=== PATIENT | female | born 1955 | race Caucasian/White ===

== ENCOUNTER 2019-10-23 12:53 | Inpatient (IN) ==
[2019-10-23 14:02] LABS: Basophils # 0.1 K/mcL (0.0-0.2); Basophils % 0.4 %; Eosinophils # 0.4 K/mcL (0.0-0.6); Eosinophils % 2.2 %; Hematocrit 32.4 % (35.3-44.9); Hemoglobin 10.5 g/dL (11.5-15.4); Immature Granulocytes % 0.4 % (0-4); Lymphocytes # 0.5 K/mcL (0.6-4.6); Mean Corpuscular HGB Conc 32.4 g/dL (31.6-35.5); Mean Corpuscular Hemoglobin 29.7 pg (28.0-33.3); Mean Corpuscular Volume 91.8 fL (83.0-100.0); Mean Platelet Volume 8.9 fL (9.4-12.4); Monocytes # 0.9 K/mcL (0.0-1.3); Monocytes % 5.5 %; Neutrophils # 14.7 K/mcL (1.6-8.9); Platelet Count 374 K/mcL (140-400); Red Blood Count 3.53 M/mcL (3.82-4.97); Red Cell Distribution Width 14.9 % (11.5-14.5); Segmented Neutrophils % 88.5 %; White Blood Count 16.6 K/mcL (4.3-11.1)
[2019-10-23 14:03] LABS: Bilirubin,Urine Small (Negative); Blood,Urine Negative (Negative); Clarity,Urine Clear (Clear); Color,Urine Yellow (Yellow); Glucose,Urine (UA) Normal (Normal); Ketones,Urine Trace mg/dL (Negative); Leukocyte Esterase,Urine Negative (Negative); Nitrite,Urine Negative (Negative); PH,Urine 5.5 pH Units (5.0-8.0); Protein,Urine Negative (Neg-Trace); Specific Gravity,Urine 1.025 (1.010-1.025); Urobilinogen,Urine Normal (Normal)
[2019-10-23 14:09] LABS: INR 1.1; Prothrombin Time 12.8 Seconds (9.4-12.1)
[2019-10-23 14:13] LABS: Activated Partial Thrombo Time 17.7 Seconds (26.0-36.0)
[2019-10-23 14:44] LABS: Alanine Aminotransferase 12 Units/L (7-52); Albumin/Globulin Ratio 0.7 (1.1-2.2); Alkaline Phosphatase 113 Units/L (34-104); Aspartate Amino Transferase 20 Units/L (13-39); BUN/Creatinine Ratio 27 (6-26); Bilirubin,Indirect 0.3 mg/dL (0.0-1.0); Bilirubin,Total 0.3 mg/dL (0.3-1.0); Blood Urea Nitrogen 16 mg/dL (8-23); Calcium 9.6 mg/dL (8.6-10.3); Carbon Dioxide 26 mEq/L (23-29); Chloride 98 mEq/L (98-107); Ethanol < 10 mg/dL (Less than 10); Globulin 4.1 g/dL (2.4-3.5); Glucose 133 mg/dL (70-105); Osmolality,Calculated 281 (280-300); Potassium 4.1 mEq/L (3.5-5.1); Sodium 134 mEq/L (136-145); Total Protein 7.1 g/dL (6.4-8.9); Troponin I < 0.03 ng/mL (< 0.04); eGFR For African Americans > 60 (> 60); eGFR For Non-African Americans > 60 (> 60)
[2019-10-23 15:25] LABS: Amphetamine Screen,Urine Negative ng/mL (Cutoff=1000); Barbiturate Screen,Urine Negative ng/mL (Cutoff=200); Benzodiazepines Screen,Urine Negative ng/mL (Cutoff=200); Cannabinoid Screen,Urine Negative ng/mL (Cutoff = 50); Cocaine Screen,Urine Negative ng/mL (Cutoff= 300); Opiate Screen,Urine Positive ng/mL (Cutoff=300); Phencyclidine Screen,Urine Negative ng/mL (Cutoff=25)
[2019-10-23 16:14] LABS: ABG Base Excess 3 mEq/L (-2 to 3); ABG HCO3 27 mEq/L (21-27); ABG Oxygen Saturation 98 % (95-98); ABG PCO2 41 mmHg (35-45); ABG PH 7.44 pH Units (7.32-7.45); ABG PO2 94 mmHg (85-104); ABG TCO2 29 mEq/L (20-26)
[2019-10-23] MEDS ORDERED: Ondansetron 4 MG/2 ML VIAL IVP PRN (16:33)
[2019-10-23] MEDS ORDERED: Naloxone 0.4 MG/ML INJ IVP PRN (16:33)
[2019-10-23] MEDS ORDERED: Ringers Solution, Lactated 1,000 ML IVC SCH (16:45)
[2019-10-23] MEDS ORDERED: Hyoscyamine SL 0.125 MG TAB.SUBL SL PRN (16:45)
[2019-10-23] MEDS ORDERED: *HR* Heparin 5,000 UNIT/ML VIAL IVP ONE (17:32)
[2019-10-23] MEDS ORDERED: *HR* Heparin 5,000 UNIT/ML VIAL IVP PRN (17:32)
[2019-10-23] MEDS ORDERED: Heparin 25,000 UNIT/250 ML D5W 25,000 UNIT/250 ML IV.SOLN IVC SCH (17:45)
[2019-10-23] MEDS ORDERED: levoFLOXacin 500 MG/100 ML 500 MG/100 ML BAG IVPB SCH (18:00)
[2019-10-23] MEDS ORDERED: MetroNIDAZOLE 500 MG/100 ML 500 MG/100 ML BAG IVPB SCH (18:00)
[2019-10-23 18:16] LABS: Basophils # 0.1 K/mcL (0.0-0.2); Basophils % 0.4 %; Eosinophils # 0.2 K/mcL (0.0-0.6); Hematocrit 32.2 % (35.3-44.9); Hemoglobin 10.5 g/dL (11.5-15.4); Immature Granulocytes % 0.6 % (0-4); Lymphocytes # 0.6 K/mcL (0.6-4.6); Lymphocytes % 2.6 %; Mean Corpuscular HGB Conc 32.6 g/dL (31.6-35.5); Mean Corpuscular Hemoglobin 29.4 pg (28.0-33.3); Mean Corpuscular Volume 90.2 fL (83.0-100.0); Monocytes % 4.8 %; Neutrophils # 19.7 K/mcL (1.6-8.9); Platelet Count 354 K/mcL (140-400); Red Blood Count 3.57 M/mcL (3.82-4.97); Red Cell Distribution Width 14.7 % (11.5-14.5); Segmented Neutrophils % 90.6 %; White Blood Count 21.7 K/mcL (4.3-11.1)
[2019-10-23 18:21] LABS: INR 1.2; Prothrombin Time 13.6 Seconds (9.4-12.1)
[2019-10-23 18:25] LABS: Activated Partial Thrombo Time 29.8 Seconds (26.0-36.0)
[2019-10-24] MEDS: Sennosides/Docusate Sodium TABLET PO SCH ×3 (00:30→21:24)
[2019-10-24] MEDS: 0.9 % Sodium Chloride 1,000 ML IVC SCH ×2 (00:31→09:28)
[2019-10-24] MEDS: levoFLOXacin 500 MG/100 ML 500 MG/100 ML BAG IVPB SCH ×2 (00:31→23:24)
[2019-10-24] MEDS: *HR* LORazepam 0.5 MG TABLET PO PRN ×2 (00:31→21:25)
[2019-10-24 00:57] LABS: Basophils # 0.1 K/mcL (0.0-0.2); Basophils % 0.4 %; Eosinophils # 0.5 K/mcL (0.0-0.6); Eosinophils % 3.1 %; Hemoglobin 9.6 g/dL (11.5-15.4); Immature Granulocytes % 0.4 % (0-4); Lymphocytes # 0.6 K/mcL (0.6-4.6); Lymphocytes % 3.7 %; Mean Corpuscular Hemoglobin 28.9 pg (28.0-33.3); Mean Corpuscular Volume 90.4 fL (83.0-100.0); Monocytes # 0.7 K/mcL (0.0-1.3); Monocytes % 4.5 %; Neutrophils # 13.8 K/mcL (1.6-8.9); Platelet Count 337 K/mcL (140-400); Red Blood Count 3.32 M/mcL (3.82-4.97); Red Cell Distribution Width 14.8 % (11.5-14.5); Segmented Neutrophils % 87.9 %; White Blood Count 15.8 K/mcL (4.3-11.1)
[2019-10-24 01:17] LABS: BUN/Creatinine Ratio 33 (6-26); Blood Urea Nitrogen 16 mg/dL (8-23); Calcium 8.8 mg/dL (8.6-10.3); Carbon Dioxide 28 mEq/L (23-29); Chloride 99 mEq/L (98-107); Glucose 200 mg/dL (70-105); Magnesium 2.2 mg/dL (1.6-2.6); Osmolality,Calculated 283 (280-300); Sodium 133 mEq/L (136-145); eGFR For African Americans > 60 (> 60); eGFR For Non-African Americans > 60 (> 60)
[2019-10-24] MEDS: *HR* Heparin 5,000 UNIT/ML VIAL IVP PRN ×4 (01:38→23:30)
[2019-10-24] MEDS: MetroNIDAZOLE 500 MG/100 ML 500 MG/100 ML BAG IVPB SCH ×3 (01:39→16:40)
[2019-10-24] MEDS ORDERED: 0.9 % Sodium Chloride 1,000 ML IV ONE (08:07)
[2019-10-24] MEDS: Cyanocobalamin (B-12) 1,000 MCG TABLET PO SCH (09:26)
[2019-10-24] MEDS: (Vilazodone Hcl [Viibryd] 20 MG) PO SCH (09:29)
[2019-10-24] MEDS ORDERED: Gadolinium Contrast Agent (WT Based) IV PRN (15:20)
[2019-10-24] MEDS ORDERED: *HR* Heparin 5,000 UNIT/ML VIAL IVP PRN (15:24)
[2019-10-24] MEDS ORDERED: *HR* Heparin 5,000 UNIT/ML VIAL IVP ONE (15:24)
[2019-10-24] MEDS ORDERED: Heparin 25,000 UNIT/250 ML D5W 25,000 UNIT/250 ML IV.SOLN IVC SCH (15:30)
[2019-10-24 15:41] LABS: Heparin anti-factor XA UFH 0.22 IU/mL (0.30-0.70)
[2019-10-24 15:55] LABS: INR 1.3; Prothrombin Time 14.5 Seconds (9.4-12.1)
[2019-10-24 16:42] LABS: Hematocrit 29.3 % (35.3-44.9); Hemoglobin 9.2 g/dL (11.5-15.4); Mean Corpuscular HGB Conc 31.4 g/dL (31.6-35.5); Mean Corpuscular Hemoglobin 29.4 pg (28.0-33.3); Mean Corpuscular Volume 93.6 fL (83.0-100.0); Mean Platelet Volume 9.4 fL (9.4-12.4); Platelet Count 338 K/mcL (140-400); Red Blood Count 3.13 M/mcL (3.82-4.97); Red Cell Distribution Width 14.7 % (11.5-14.5); White Blood Count 14.3 K/mcL (4.3-11.1)
[2019-10-24] MEDS ORDERED: *HR* Rivaroxaban 15 MG TABLET PO SCH (21:00)
[2019-10-25] MEDS: MetroNIDAZOLE 500 MG/100 ML 500 MG/100 ML BAG IVPB SCH ×4 (00:44→23:14)
[2019-10-25] MEDS ORDERED: Haloperidol Lactate 5 MG/ML VIAL IVP ONE (01:54)
[2019-10-25] MEDS ORDERED: *HR* Promethazine 25 MG/ML VIAL IVP ONE (01:55)
[2019-10-25] MEDS ORDERED: *HR* Promethazine 25 MG/ML VIAL IM ONE ×2 (02:00→02:30)
[2019-10-25] MEDS ORDERED: Haloperidol Lactate 5 MG/ML VIAL IM ONE (02:00)
[2019-10-25 06:01] LABS: Basophils # 0.1 K/mcL (0.0-0.2); Basophils % 0.3 %; Eosinophils % 0.2 %; Hematocrit 29.6 % (35.3-44.9); Hemoglobin 9.8 g/dL (11.5-15.4); Immature Granulocytes % 0.6 % (0-4); Lymphocytes # 0.6 K/mcL (0.6-4.6); Lymphocytes % 3.1 %; Mean Corpuscular HGB Conc 33.1 g/dL (31.6-35.5); Mean Corpuscular Hemoglobin 29.2 pg (28.0-33.3); Mean Corpuscular Volume 88.1 fL (83.0-100.0); Mean Platelet Volume 9.1 fL (9.4-12.4); Monocytes # 1.1 K/mcL (0.0-1.3); Monocytes % 5.9 %; Platelet Count 376 K/mcL (140-400); Red Blood Count 3.36 M/mcL (3.82-4.97); Red Cell Distribution Width 14.6 % (11.5-14.5); Segmented Neutrophils % 89.9 %; White Blood Count 17.8 K/mcL (4.3-11.1)
[2019-10-25 06:14] LABS: BUN/Creatinine Ratio 18 (6-26); Blood Urea Nitrogen 10 mg/dL (8-23); Calcium 8.8 mg/dL (8.6-10.3); Carbon Dioxide 24 mEq/L (23-29); Chloride 97 mEq/L (98-107); Glucose 154 mg/dL (70-105); Magnesium 1.9 mg/dL (1.6-2.6); Osmolality,Calculated 278 (280-300); Potassium 3.7 mEq/L (3.5-5.1); Sodium 133 mEq/L (136-145); eGFR For African Americans > 60 (> 60); eGFR For Non-African Americans > 60 (> 60)
[2019-10-25 06:21] LABS: % Iron Saturation 16 % (15-50); Iron 23 mcg/dL (50-170); Transferrin 105 mg/dL (203-362)
[2019-10-25 06:34] LABS: Ferritin 619 ng/mL (10-120)
[2019-10-25 06:42] LABS: Folate > 22.3 ng/mL (3.0-16.0); Vitamin B12 > 1500 pg/mL (250-1100)
[2019-10-25] MEDS: Cyanocobalamin (B-12) 1,000 MCG TABLET PO SCH (07:51)
[2019-10-25] MEDS: Sennosides/Docusate Sodium TABLET PO SCH ×2 (07:51→20:10)
[2019-10-25] MEDS: *HR* LORazepam 0.5 MG TABLET PO PRN (12:48)
[2019-10-25] MEDS: *HR* Rivaroxaban 15 MG TABLET PO SCH ×2 (12:48→20:10)
[2019-10-25] MEDS: (Vilazodone Hcl [Viibryd] 20 MG) PO SCH (12:57)
[2019-10-25] MEDS ORDERED: Gadolinium Contrast Agent (WT Based) IV PRN (15:03)
[2019-10-25] MEDS: Acetaminophen 325 MG TABLET PO PRN (20:09)
[2019-10-25] MEDS: 0.9 % Sodium Chloride 1,000 ML IVC SCH (22:15)
[2019-10-26] MEDS: 0.9 % Sodium Chloride 1,000 ML IVC SCH (05:21)
[2019-10-26] MEDS ORDERED: levoFLOXacin 750 MG/150 ML 750 MG/150 ML BAG IVPB SCH (09:00)
[2019-10-26] MEDS: Cyanocobalamin (B-12) 1,000 MCG TABLET PO SCH (09:57)
[2019-10-26] MEDS: *HR* Rivaroxaban 15 MG TABLET PO SCH ×2 (09:57→21:29)
[2019-10-26] MEDS: Sennosides/Docusate Sodium TABLET PO SCH ×2 (09:57→21:29)
[2019-10-26] MEDS: MetroNIDAZOLE 500 MG/100 ML 500 MG/100 ML BAG IVPB SCH (09:58)
[2019-10-26] MEDS: BuPROPion XL (24 HR) 150 MG TABLET PO SCH (11:46)
[2019-10-26] MEDS: *HR* OxyCODONE Immed Rel 5 MG TABLET PO PRN (13:42)
[2019-10-26 14:55] LABS: Basophils # 0.1 K/mcL (0.0-0.2); Basophils % 0.4 %; Eosinophils # 0.2 K/mcL (0.0-0.6); Hematocrit 28.5 % (35.3-44.9); Hemoglobin 8.9 g/dL (11.5-15.4); Immature Granulocytes % 0.5 % (0-4); Lymphocytes # 0.7 K/mcL (0.6-4.6); Lymphocytes % 3.7 %; Mean Corpuscular HGB Conc 31.2 g/dL (31.6-35.5); Mean Corpuscular Hemoglobin 28.9 pg (28.0-33.3); Mean Corpuscular Volume 92.5 fL (83.0-100.0); Mean Platelet Volume 9.4 fL (9.4-12.4); Monocytes # 1.1 K/mcL (0.0-1.3); Monocytes % 5.6 %; Neutrophils # 16.5 K/mcL (1.6-8.9); Platelet Count 338 K/mcL (140-400); Red Blood Count 3.08 M/mcL (3.82-4.97); Red Cell Distribution Width 14.9 % (11.5-14.5); Segmented Neutrophils % 88.8 %; White Blood Count 18.6 K/mcL (4.3-11.1)
[2019-10-26 15:20] LABS: BUN/Creatinine Ratio 11 (6-26); Blood Urea Nitrogen 6 mg/dL (8-23); Calcium 8.5 mg/dL (8.6-10.3); Carbon Dioxide 25 mEq/L (23-29); Chloride 97 mEq/L (98-107); Glucose 119 mg/dL (70-105); Magnesium 1.7 mg/dL (1.6-2.6); Osmolality,Calculated 273 (280-300); Potassium 3.4 mEq/L (3.5-5.1); Sodium 132 mEq/L (136-145); eGFR For African Americans > 60 (> 60); eGFR For Non-African Americans > 60 (> 60)
[2019-10-26] MEDS: *HR* LORazepam 0.5 MG TABLET PO PRN (18:16)
[2019-10-26] MEDS: metroNIDAZOLE 500 MG TABLET PO SCH (21:29)
[2019-10-27 03:16] LABS: Basophils # 0.1 K/mcL (0.0-0.2); Basophils % 0.3 %; Eosinophils # 0.2 K/mcL (0.0-0.6); Eosinophils % 1.4 %; Hematocrit 27.4 % (35.3-44.9); Immature Granulocytes % 0.5 % (0-4); Lymphocytes # 0.8 K/mcL (0.6-4.6); Lymphocytes % 4.8 %; Mean Corpuscular HGB Conc 32.8 g/dL (31.6-35.5); Mean Corpuscular Hemoglobin 29.1 pg (28.0-33.3); Mean Corpuscular Volume 88.7 fL (83.0-100.0); Mean Platelet Volume 9.1 fL (9.4-12.4); Monocytes # 1.3 K/mcL (0.0-1.3); Monocytes % 8.2 %; Neutrophils # 13.5 K/mcL (1.6-8.9); Platelet Count 342 K/mcL (140-400); Red Blood Count 3.09 M/mcL (3.82-4.97); Red Cell Distribution Width 14.8 % (11.5-14.5); Segmented Neutrophils % 84.8 %; White Blood Count 15.9 K/mcL (4.3-11.1)
[2019-10-27 03:53] LABS: BUN/Creatinine Ratio 9 (6-26); Blood Urea Nitrogen 5 mg/dL (8-23); Calcium 8.5 mg/dL (8.6-10.3); Carbon Dioxide 27 mEq/L (23-29); Chloride 97 mEq/L (98-107); Glucose 93 mg/dL (70-105); Magnesium 1.8 mg/dL (1.6-2.6); Osmolality,Calculated 273 (280-300); Potassium 3.4 mEq/L (3.5-5.1); Sodium 133 mEq/L (136-145); eGFR For African Americans > 60 (> 60); eGFR For Non-African Americans > 60 (> 60)
[2019-10-27] MEDS: metroNIDAZOLE 500 MG TABLET PO SCH ×3 (07:57→19:48)
[2019-10-27] MEDS: Sennosides/Docusate Sodium TABLET PO SCH ×2 (07:57→19:48)
[2019-10-27] MEDS: BuPROPion XL (24 HR) 150 MG TABLET PO SCH (07:57)
[2019-10-27] MEDS: *HR* Rivaroxaban 15 MG TABLET PO SCH ×2 (07:57→19:49)
[2019-10-27] MEDS: Cyanocobalamin (B-12) 1,000 MCG TABLET PO SCH (07:58)
[2019-10-27] MEDS: levoFLOXacin 750 MG TABLET PO SCH (07:58)
[2019-10-27] MEDS: *HR* OxyCODONE Immed Rel 5 MG TABLET PO PRN (12:37)
[2019-10-27] MEDS: *HR* LORazepam 0.5 MG TABLET PO PRN (18:20)
[2019-10-27] MEDS: Acetaminophen 325 MG TABLET PO PRN (19:49)
[2019-10-28 09:45] LABS: Basophils # 0.1 K/mcL (0.0-0.2); Basophils % 0.3 %; Eosinophils # 0.1 K/mcL (0.0-0.6); Eosinophils % 0.5 %; Hematocrit 28.3 % (35.3-44.9); Hemoglobin 9.4 g/dL (11.5-15.4); Immature Granulocytes % 0.8 % (0-4); Lymphocytes # 0.7 K/mcL (0.6-4.6); Lymphocytes % 3.9 %; Mean Corpuscular HGB Conc 33.2 g/dL (31.6-35.5); Mean Corpuscular Hemoglobin 29.3 pg (28.0-33.3); Mean Corpuscular Volume 88.2 fL (83.0-100.0); Monocytes # 1.2 K/mcL (0.0-1.3); Monocytes % 6.6 %; Neutrophils # 16.2 K/mcL (1.6-8.9); Platelet Count 304 K/mcL (140-400); Red Blood Count 3.21 M/mcL (3.82-4.97); Red Cell Distribution Width 14.6 % (11.5-14.5); Segmented Neutrophils % 87.9 %; White Blood Count 18.5 K/mcL (4.3-11.1)
[2019-10-28 10:07] LABS: BUN/Creatinine Ratio 13 (6-26); Blood Urea Nitrogen 7 mg/dL (8-23); Calcium 8.3 mg/dL (8.6-10.3); Carbon Dioxide 28 mEq/L (23-29); Chloride 95 mEq/L (98-107); Glucose 132 mg/dL (70-105); Osmolality,Calculated 276 (280-300); Potassium 3.4 mEq/L (3.5-5.1); Sodium 133 mEq/L (136-145); eGFR For African Americans > 60 (> 60); eGFR For Non-African Americans > 60 (> 60)
[2019-10-28] MEDS: BuPROPion XL (24 HR) 150 MG TABLET PO SCH (10:58)
[2019-10-28] MEDS: Sennosides/Docusate Sodium TABLET PO SCH ×2 (10:58→21:06)
[2019-10-28] MEDS: levoFLOXacin 750 MG TABLET PO SCH (10:58)
[2019-10-28] MEDS: *HR* Rivaroxaban 15 MG TABLET PO SCH ×2 (10:58→21:06)
[2019-10-28] MEDS: Cyanocobalamin (B-12) 1,000 MCG TABLET PO SCH (10:58)
[2019-10-28] MEDS: metroNIDAZOLE 500 MG TABLET PO SCH ×3 (10:58→21:06)
[2019-10-28] MEDS: *HR* LORazepam 0.5 MG TABLET PO PRN (11:41)
[2019-10-28] MEDS: *HR* OxyCODONE Immed Rel 5 MG TABLET PO PRN (15:24)
[2019-10-28] MEDS ORDERED: Levalbuterol Neb 1.25 MG/3 ML IH PRN (21:04)
[2019-10-28] MEDS: Acetaminophen 325 MG TABLET PO PRN (21:05)
[2019-10-28 22:15] LABS: Bilirubin,Urine Negative (Negative); Blood,Urine Negative (Negative); Clarity,Urine Clear (Clear); Color,Urine Yellow (Yellow); Glucose,Urine (UA) Normal (Normal); Ketones,Urine Negative (Negative); Leukocyte Esterase,Urine Negative (Negative); Nitrite,Urine Negative (Negative); PH,Urine 6.5 pH Units (5.0-8.0); Protein,Urine Negative (Neg-Trace); Specific Gravity,Urine 1.011 (1.010-1.025); Urobilinogen,Urine Normal (Normal)
[2019-10-29] MEDS: *HR* OxyCODONE Immed Rel 5 MG TABLET PO PRN (05:27)
[2019-10-29] MEDS: levoFLOXacin 750 MG TABLET PO SCH (10:34)
[2019-10-29] MEDS: metroNIDAZOLE 500 MG TABLET PO SCH ×3 (10:34→20:49)
[2019-10-29] MEDS: BuPROPion XL (24 HR) 150 MG TABLET PO SCH (10:34)
[2019-10-29] MEDS: Cyanocobalamin (B-12) 1,000 MCG TABLET PO SCH (10:34)
[2019-10-29] MEDS: Sennosides/Docusate Sodium TABLET PO SCH ×2 (10:34→20:49)
[2019-10-29] MEDS: *HR* Rivaroxaban 15 MG TABLET PO SCH ×2 (10:34→20:49)
[2019-10-29] MEDS: Ringers Solution, Lactated 1,000 ML IVC SCH (15:43)
[2019-10-29] MEDS: Acetaminophen 325 MG TABLET PO PRN (20:48)
[2019-10-30] MEDS: Ringers Solution, Lactated 1,000 ML IVC SCH ×2 (06:17→20:52)
[2019-10-30] MEDS: BuPROPion XL (24 HR) 150 MG TABLET PO SCH (09:41)
[2019-10-30] MEDS: Sennosides/Docusate Sodium TABLET PO SCH ×2 (09:41→20:49)
[2019-10-30] MEDS: Cyanocobalamin (B-12) 1,000 MCG TABLET PO SCH (09:41)
[2019-10-30] MEDS: *HR* Rivaroxaban 15 MG TABLET PO SCH ×2 (09:41→20:48)
[2019-10-30] MEDS ORDERED: Menthol 9.1 MG LOZENGE PO PRN (14:21)
[2019-10-30] MEDS: *HR* OxyCODONE Immed Rel 5 MG TABLET PO PRN (14:52)
[2019-10-30] MEDS: *HR* LORazepam 0.5 MG TABLET PO PRN (21:13)
[2019-10-31] MEDS: Cyanocobalamin (B-12) 1,000 MCG TABLET PO SCH (08:22)
[2019-10-31] MEDS: BuPROPion XL (24 HR) 150 MG TABLET PO SCH (08:22)
[2019-10-31] MEDS: *HR* Rivaroxaban 15 MG TABLET PO SCH ×2 (08:23→22:36)
[2019-10-31] MEDS: Sennosides/Docusate Sodium TABLET PO SCH ×2 (08:23→22:36)
[2019-10-31] MEDS: Ringers Solution, Lactated 1,000 ML IVC SCH ×2 (08:23→23:30)
[2019-10-31] MEDS: Acetaminophen 325 MG TABLET PO PRN (10:52)
[2019-10-31] MEDS: *HR* OxyCODONE Immed Rel 5 MG TABLET PO PRN (14:57)
[2019-10-31] MEDS: *HR* LORazepam 0.5 MG TABLET PO PRN (22:35)
[2019-11-01] MEDS: *HR* Rivaroxaban 15 MG TABLET PO SCH ×2 (08:40→20:13)
[2019-11-01] MEDS: BuPROPion XL (24 HR) 150 MG TABLET PO SCH (08:40)
[2019-11-01] MEDS: Sennosides/Docusate Sodium TABLET PO SCH ×2 (08:40→20:13)
[2019-11-01] MEDS: Cyanocobalamin (B-12) 1,000 MCG TABLET PO SCH (08:41)
[2019-11-01] MEDS: *HR* OxyCODONE Immed Rel 5 MG TABLET PO PRN (16:28)
[2019-11-01] MEDS: *HR* LORazepam 0.5 MG TABLET PO PRN (20:13)
[2019-11-02] MEDS: Sennosides/Docusate Sodium TABLET PO SCH ×2 (09:26→23:05)
[2019-11-02] MEDS: Cyanocobalamin (B-12) 1,000 MCG TABLET PO SCH (09:26)
[2019-11-02] MEDS: *HR* Rivaroxaban 15 MG TABLET PO SCH ×2 (09:26→23:05)
[2019-11-02] MEDS: BuPROPion XL (24 HR) 150 MG TABLET PO SCH (09:26)
[2019-11-02] MEDS: *HR* OxyCODONE Immed Rel 5 MG TABLET PO PRN (15:30)
[2019-11-02] MEDS: *HR* LORazepam 0.5 MG TABLET PO PRN (23:15)
[2019-11-03] MEDS: Cyanocobalamin (B-12) 1,000 MCG TABLET PO SCH ×2 (09:15→09:16)
[2019-11-03] MEDS: Sennosides/Docusate Sodium TABLET PO SCH ×2 (09:15→19:52)
[2019-11-03] MEDS: *HR* Rivaroxaban 15 MG TABLET PO SCH ×2 (09:16→19:52)
[2019-11-03] MEDS: BuPROPion XL (24 HR) 150 MG TABLET PO SCH (09:16)
[2019-11-03] MEDS: *HR* LORazepam 0.5 MG TABLET PO PRN (19:54)
[2019-11-04] MEDS: *HR* OxyCODONE Immed Rel 5 MG TABLET PO PRN (10:38)
[2019-11-04] MEDS: BuPROPion XL (24 HR) 150 MG TABLET PO SCH (10:39)
[2019-11-04] MEDS: Sennosides/Docusate Sodium TABLET PO SCH (10:39)
[2019-11-04] MEDS: *HR* Rivaroxaban 15 MG TABLET PO SCH (10:39)
[2019-11-04 11:22] VITALS: BP 98/62
== END 2019-11-04 14:28 | DRG 871 ==
LOC: EMEROOARM 12:53 → 3ANU 12:53 → SUATTDRO 16:01 → 3ANU 17:34 → SUATTDRO 10-26 17:02
PROVIDERS: ADMIT Pharmacist; ATTEND Family Medicine